=== PATIENT | female | born 1960 | race Caucasian/White ===

== ENCOUNTER 2021-08-13 06:44 | Day surgery (SDC) | payer MEDICARE, MEDICAID ==
[~2021-08-13] VITALS: Ht 162.6 cm; Wt 93.4 kg
[~2021-08-13 06:44] MED LIST: AMIT25TA12 PO; APIX5TAB PO; CYCL-839 PO; ERGO1CAP12 PO; GABA300C10 PO; HYDR200T36 PO; LISI20TA28 PO; MAGN400T40 PO; MECL25TA18 PO; METF-371 PO; METO25TA5 PO; PANT1INJ3 PO; ZOLP10TA6 PO
[2021-08-13] MEDS ORDERED: LIDOCAINE 2%HCL (LOCAL ANESTH.) INJ 20ML MDV ONE ×2 (08:20→09:22)
[2021-08-13] MEDS ORDERED: IODIXANOL 320MG/ML 100ML BTL IV ONE (09:22)
[2021-08-13] MEDS ORDERED: ANGIOMAX 250 MG VIAL IV ONE (09:23)
[2021-08-13] MEDS ORDERED: methylPREDNISolone SOD SUCC 125 MG/2 ML VL ONE (09:23)
[2021-08-13] MEDS ORDERED: diphenhdrAMINE HCL 50 MG/1 ML VL ONE (09:24)
[2021-08-13] MEDS ORDERED: SODIUM CHL 0.9% 0 ML ONE (09:24)
[2021-08-13] MEDS ORDERED: HEPARIN SODIUM (PORCINE) 5000 UNITS/ML 1ML VIAL ONE (09:24)
[2021-08-13] MEDS ORDERED: VERAPAMIL 2.5MG/ML INJ 2ML VIAL IV ONE (09:24)
[2021-08-13] MEDS ORDERED: fentaNYL CITRATE 100 MCG/2 ML VL ONE (09:24)
[2021-08-13] MEDS ORDERED: MIDAZOLAM HCL 2MG/2ML 2ml VIAL (1mg/ml) ONE (09:24)
[2021-08-13] MEDS ORDERED: FAMOTIDINE (10MG/ML) 2ML VL IV ONE (09:25)
[2021-08-13] MEDS ORDERED: ONDANSETRON HCL 4 MG/2 ML VIAL IV PRN (10:15)
[2021-08-13] MEDS ORDERED: ACETAMINOPHEN 500 MG TAB PO PRN (10:15)
[2021-08-13] MEDS ORDERED: HYDROcodone-ACET 5/325MG TAB PO PRN (10:15)
== END 2021-08-13 12:16 | disposition home or self-care (01) ==
LOC: CATH 06:44
PROVIDERS: ATTEND Internal Medicine Cardiovascular Disease
DX: I25.10 Atherosclerotic heart disease of native coronary artery without angina pectoris (principal); I10 Essential (primary) hypertension; E78.5 Hyperlipidemia, unspecified; J45.909 Unspecified asthma, uncomplicated; E11.9 Type 2 diabetes mellitus without complications; Z20.822 Contact with and (suspected) exposure to COVID-19; Z79.82 Long term (current) use of aspirin; Z79.899 Other long term (current) drug therapy; Z88.1 Allergy status to other antibiotic agents; Z91.041 Radiographic dye allergy status
CPT/HCPCS: 93458; C1887; C1894; J1200; J1644; J2250; J2930; J3010; J3490; Q9967; U0003; 99152

== ENCOUNTER 2025-09-12 06:17 | Inpatient (IN) | payer MEDICARE, MEDICAID ==
[2025-09-08 09:32] LABS: Hematocrit 36.7 % (36.0-46.0); Hemoglobin 12.2 g/dL (12.2-16.2); Mean Corpuscular Hemoglobin 29.8 pg (28.0-32.0); Mean Corpuscular Volume 89.4 fL (80.0-100.0); Nucleated Red Blood Cells % 0.1 %
[2025-09-08 09:39] LABS: INR 1.02 (0.9-1.15); Partial Thromboplastin Time 27.9 SEC (24.5-34.5); Prothrombin Time 10.8 sec (9.3-11.8)
[2025-09-08 10:03] LABS: Alanine Aminotransferase 16 U/L (7-40); Albumin 4.4 g/dL (3.2-4.8); Alkaline Phosphatase 99 U/L (46-116); Anion Gap 8 (5-15); BUN/Creatinine Ratio 6.7 (10.0-20.0); Bilirubin, Total 0.4 mg/dL (0.2-1.0); Blood Urea Nitrogen 6 mg/dL (9-23); Calcium 9.5 mg/dL (8.7-10.4); Carbon Dioxide 29 mmol/L (20-31); Chloride 107 mmol/L (98-107); Glucose 94 mg/dL (74-106); Potassium 3.9 mmol/L (3.5-5.1); Sodium 144 mmol/L (136-145); Total Protein 7.5 g/dL (5.7-8.2)
[2025-09-08 10:08] LABS: Urine Budding Yeast MODERATE /hpf (None Seen); Urine Protein, UAD Negative (Negative)
[2025-09-12] VITALS (8 sets, daily range): BP systolic 104–128; BP diastolic 62–76; PULSE 65–89; RESP 12–22; TEMP 97.4–98.1; O2SAT 94–98
[~2025-09-12] VITALS: Ht 162.6 cm; Wt 112.4 kg
[~2025-09-12 06:17] MED LIST changes: -AMIT25TA12 PO; +CETI10TA2 PO; -CYCL-839 PO; +CYCL0.05 EACHEYE; +DICL75TA3 PO; +DULO20CA PO; -ERGO1CAP12 PO; +FLUT250M2 INH; +GABA-1250 PO; -GABA300C10 PO; +HYDR-4798 PO; +HYDR50TA47 PO; +LIDO5DIS21 TOP; -LISI20TA28 PO; +LOSA-533 PO; -MAGN400T40 PO; -MECL25TA18 PO; +METF-370 PO; +QUET50TA PO; +SEMA4INJ SC; -ZOLP10TA6 PO
--- NOTE | 2025-09-12 07:27 | DVHHP2 ---
Admitting Diagnosis: lumbar spinal stenosis and spondylolisthesis History of Present Illness Home Meds Reported Medications Metformin Hydrochloride (Metformin Hcl) 500 Mg Tab, PO, TAB 09/08/25 Cyclosporine (Ophth) (Restasis) 0.05 % Emu, EACHEYE BID, #60 VIAL 3 Refills 09/08/25 Semaglutide (Ozempic) 4 Mg/3 Ml Inj, SC, INJ 09/08/25 Losartan Potassium (Losartan Potassium) 25 Mg Tab, PO, TAB 09/08/25 Hydrocodone-Acetaminophen (Hydrocodone Bitartrate/AC 10-325 mg) 1 Tab Tab, PO, TAB 09/08/25 Duloxetine Hcl (Cymbalta) 20 Mg Cap, PO, CAP 09/08/25 Fluticasone-Salmeterol (Advair Diskus 250/50) 1 Puff Ih, INH BID, #3 INHALER 3 Refills 09/08/25 Diclofenac Sodium (Diclofenac Sodium Dr) 75 Mg Tab, PO, TAB 09/08/25 Quetiapine Fumerate (Seroquel) 50 Mg Tab, PO, TAB 09/08/25 Lidocaine (LIDODERM 5% TOPICAL PATCH) 1 Patch Ph, TOP DAILY, #30 PATCH 1 Refill 09/08/25 Cetirizine Hcl (Kls Aller-Tana) 10 Mg Tab, PO, TAB 09/08/25 Hydralazine Hcl (Hydralazine Hcl) 50 Mg Tab, PO, TAB 09/08/25 Pantoprazole Sodium (PANTOPRAZOLE SODIUM) 40 Mg Inj, 40 MG PO BID for ACID REFLUX, INJ 08/12/21 Hydroxychloroquine Sulfate (Hydroxychloroquine Sulfat) 200 Mg Tab, 200 MG PO DAILY for SJOGREN SYNDROME, MG 08/12/21 Metoprolol Tartrate (Metoprolol Tartrate) 25 Mg Tab, 25 MG PO DAILY for BP, TAB 08/12/21 Gabapentin (Gabapentin) 300 Mg Cap, 300 MG PO TID for NEUROPATHY, MG 08/12/21 Metformin Hydrochloride (Metformin Hcl) 850 Mg Tab, 850 MG PO BID for DIABETES for 30 Days, MG 08/12/21 Apixaban Base (ELIQUIS) 5 Mg Tab, 5 MG PO BID for Blood Thinner, TAB 08/12/21 Timing/Duration of Back Pain: Getting worse Quality of Back Pain: Aching, Burning, Cramping Back Pain Location: Lumbar spine Back Pain Radiation: Buttocks, Thigh area, Feet Method of Injury/Prior Factors: Unknown Review of Systems Constitutional: No symptom reported Ears, Nose, & Throat: No symptom reported Eyes: No symptom reported Pulmonary/Respiratory: No symptom reported Cardiovascular: No symptom reported Gastrointestinal: No symptom reported Genitourinary: No symptom reported Musculoskeletal: Back pain, Muscle pain, Muscle stiffness Skin: No symptom reported Psychiatric: No symptom reported Endocrine: No symptom reported Hemotologic/Lymphatic: No symptom reported H&P Exam General Appeara: Well developed, Well nourished, Normal Appearance Head Exam: Normal inspection Neck Exam: Normal inspection, Non-tender, Normal alignment Eye Exam: bilateral eye Normal inspection, bilateral eye PERRL, bilateral eye EOMI Ear Exam: bilateral ear Auricle normal, bilateral ear Canal normal, bilateral ear TM normal Nasal Exam: Normal inspection Mouth: Normal Inspection Pulmonary/Respiratory: Normal inspection, Normal breath sounds, Chest non- tender, Lungs clear Cardiovascular/Chest: Normal inspection, Regular rate, Normal Rhythm Abdominal Exam: Normal bowel sounds, Soft, No tenderness, No hepatospenomegaly, No masses Rectal Exam: Deferred Back Exam: Decreased range of motion, Muscle spasm, Vertebral tenderness Pelvic Exam: Not done Male Genital Exam: Not done Shoulder Exam: Normal inspection, Non-tender, Normal ROM Elbow/Forearm Exam: Normal inspection, Non-tender, Normal ROM Wrist Exam: Normal inspection, Non-tender, Normal ROM Hand Exam: Normal inspection, Non-tender, Normal ROM Hip exam: Normal inspection, Non-tender, Normal range of motion Legs: bilateral leg non-tender, bilateral leg normal inspection, bilateral leg normal range of motion, bilateral leg no evidence of injury Knees: bilateral knee non-tender, bilateral knee normal inspection, bilateral knee normal range of motion, bilateral knee no evidence of injury Ankle Exam: bilateral ankle Normal inspection, bilateral ankle Non-tender, bilateral ankle Normal range of motion, bilateral ankle No evidence of injury Foot: bilateral foot non-tender, bilateral foot normal inspection, bilateral foot normal range of motion, bilateral foot no evidence of injury Tendon/ Neuro: Motor deficit, Sensory deficit CAMPAIGN ANALYST Exam: Normal hearing, Normal speech, PERRL Motor/Sensory: Weak motor strength LUE, Weak motor strength RLE, Weak motor strength LLE Deep Tendon Ref: All intact Neuro/Mental St: Alert, Oriented Appearance: Appropriate appearance Eye contact/ Speech: Cooperative, Good eye contact, Normal speech Coordination/Gait: Abnormal gait Skin Exam: Normal inspection, Normal color, Warm/dry Lymphatic: Normal inspection Labs/Xrays Labs Test 09/12/25 06:55 09/08/25 09:04 Range/Units POC Glucose 111 H 70-106 mg/dl White Blood Count 4.3 L 4.4-10.8 10^3/uL Red Blood Count 4.10 4.0-5.20 10^6/uL Hemoglobin 12.2 12.2-16.2 g/dL Hematocrit 36.7 36.0-46.0 % Mean Corpuscular Volume 89.4 80.0-100.0 fL Mean Corpuscular Hemoglobin 29.8 28.0-32.0 pg Mean Corpuscular Hemoglobin Concent 33.4 32.0-36.0 g/dL Red Cell Distribution Width 13.9 11.8-14.3 % Platelet Count 225 140-450 10^3/uL Mean Platelet Volume 8.4 6.9-10.8 fL Neutrophils (%) (Auto) 38.8 37.0-80.0 % Lymphocytes (%) (Auto) 46.1 10.0-50.0 % Monocytes (%) (Auto) 11.5 0.0-12.0 % Eosinophils (%) (Auto) 2.3 0.0-7.0 % Basophils (%) (Auto) 1.3 0.0-2.0 % Neutrophils # (Auto) 1.7 1.6-8.6 10 ^3/uL Lymphocytes # (Auto) 2.0 0.4-5.4 10 ^3/uL Monocytes # (Auto) 0.5 0-1.3 10 ^3/uL Eosinophils # (Auto) 0.1 0-0.8 10 ^3/uL Basophils # (Auto) 0.1 0-0.2 10 ^3/uL Nucleated Red Blood Cells 0.1 % Prothrombin Time 10.8 9.3-11.8 sec Prothrombin Time INR 1.02 0.9-1.15 Activated Partial Thromboplast Time 27.9 24.5-34.5 SEC Urine Color Light-yellow Yellow Urine Clarity Clear Clear Urine pH 5.0 5.0-9.0 Urine Specific [place] 1.031 1.001-1.035 Urine Protein Negative Negative Urine Ketones Negative Negative Urine Blood Negative Negative /uL Urine Nitrite Negative Negative Urine Bilirubin Negative Negative Urine Urobilinogen Normal Negative mg/dL Urine Leukocyte Esterase Negative Negative /uL Urine RBC 21 0 - 4 /hpf Urine Microscopic WBC 28 H 0-5 /HPF Urine Squamous Epithelial Cells Few <5 /hpf Urine Bacteria Few H None Seen /hpf Urine Mucus Few None Seen Urine Yeast (Budding) Moderate None Seen /hpf Urine Glucose 4+ H Normal mg/dL Sodium Level 144 136-145 mmol/L Potassium Level 3.9 3.5-5.1 mmol/L Chloride Level 107 98-107 mmol/L Carbon Dioxide Level 29 20-31 mmol/L Anion Gap 8 5-15 Blood Urea Nitrogen 6 L 9-23 mg/dL Creatinine 0.90 0.550-1.02 mg/dL Glomerular Filtration Rate Calc 72 >90 mL/min BUN/Creatinine Ratio 6.7 L 10.0-20.0 Serum Glucose 94 74-106 mg/dL Calcium Level 9.5 8.7-10.4 mg/dL Total Bilirubin 0.4 0.2-1.0 mg/dL Aspartate Amino Transferase (AST) 21 13-40 U/L Alanine Aminotransferase (ALT) 16 7-40 U/L Alkaline Phosphatase 99 46-116 U/L Total Protein 7.5 5.7-8.2 g/dL Albumin 4.4 3.2-4.8 g/dL Assessment/Plan Primary Diagnosis Lumbar spinal stenosis / spondylolisthesis with incpacitating neurogenic claudication Plan admit for elective lumbar spine surgery Plan discussed with: Patient REANNA VILLEGAS MD Sep 12, 2025 07:27
[2025-09-12] MEDS: ceFAZolin 2 GM/D5W50ml 50 ML IV ONE (07:35)
[2025-09-12] MEDS ORDERED: fentaNYL CITRATE 100 MCG/2 ML VL ONE (07:39)
[2025-09-12] MEDS ORDERED: MIDAZOLAM HCL 2MG/2ML 2ml VIAL (1mg/ml) ONE (07:39)
[2025-09-12] MEDS ORDERED: ONDANSETRON HCL 4 MG/2 ML VIAL ONE (07:40)
[2025-09-12] MEDS ORDERED: LIDOCAINE 1% INJ PF 5ML AMP ONE (07:40)
[2025-09-12] MEDS ORDERED: ROCURONIUM 10MG/ML 10ML VIAL IV ONE (07:40)
[2025-09-12] MEDS ORDERED: PROPOFOL 10 MG/ML 20 ML IV ONE ×3 (07:40→09:28)
[2025-09-12] MEDS ORDERED: METOCLOPRAMIDE HCL 5MG/ml INJ 2ml VIAL ONE (07:40)
[2025-09-12] MEDS ORDERED: fentaNYL CITRATE 5 ML ONE (07:56)
[2025-09-12] MEDS ORDERED: MORPHINE SULFATE INJ 2 MG/ml SYRG IV PRN ×2 (08:00)
[2025-09-12] MEDS ORDERED: ACETAMINOPHEN 325 MG TAB PO PRN (08:00)
[2025-09-12] MEDS ORDERED: D5W/SOD CHLO 0.9% 1,000 ML IV SCH (08:00)
[2025-09-12] MEDS ORDERED: NITROGLYCERIN 0.4 MG SL TAB SL PRN (08:00)
[2025-09-12] MEDS: MAGNESIUM SULFATE 1GM/100ML 200 ML IV ONE (08:11)
[2025-09-12] MEDS: LIDOCAINE 4MG/ML IV SOLN 500 ML IV ONE (08:11)
[2025-09-12] MEDS: TRANEXAMIC ACID 20 ML ONE (08:41)
[2025-09-12] MEDS ORDERED: SODIUM CHLORIDE LOCK 10 ML ONE (09:12)
[2025-09-12] MEDS ORDERED: SUGAMMADEX 200mg/2ml Vial (100MG/ML) IV ONE (09:19)
[2025-09-12] MEDS: DOCUSATE SOD 100 MG CAP PO SCH (10:00)
--- NOTE | 2025-09-12 10:11 | DVHOP2 ---
Operative Report - 2 Report Details Date: 09/12/25 Preop Diagnosis: lumbar degenerative disc disease and spinal stenosis causing incapacitating low back pain and neurogenic claudication Postop Diagnosis: same Surgeon: Vikas Villegas MD Biological Plant Operator: none Anesthesiologist: shamir Anesthesia: General Consent: The patient was informed of the risks and benefits of the procedure. These include but are not limited to complications of anesthesia, postoperative infection, incomplete relief of symptoms, recurrence of symptoms, damage to blood vessels, nerves and tendons, deep venous thrombosis, pulmonary embolism and possible need for repeat surgery in the future. Name of Procedure Performed see detailed note Procedure Details Procedure Details: Pre op diagnosis: lumbar degenerative disc disease and spinal stenosis causing incapacitating low back pain and neurogenic claudication Post-op Diagnosis: same Procedure: Lumbar 5 laminectomy with Lumbar 5 foraminotomies and facetectomies along with a L5/S1 discectomy to decompress central canal and Lumbar 5 nerve roots Bilateral Sacral 1 Laminotomies/Foraminotomies/Facetectomies to decompress the central canal and Bilateral Sacral 1 nerve Roots Lumbar 5 to sacral 1 posterior spinal intertransverse fusion with bone graft Lumbar 5 to sacral 1 posterior spinal instrumentation with Pedicle screws Local Bone Autograft For Fusion Allograft Bone to augment Fusion Use of Demineralized Bone Matrix to Augment Fusion Microscope For Microdissection Surgeon: Vikas Villegas MD Assist: none Anesthesia: General Fluids and EBL: See anesthesia note Patient was seen in the Pre Anesthesia Care Unit (PACU) and the operative site was initialed by me. All questions were answered to the patients satisfaction and chart reviewed. The patient was taken to the operative room where pre- operative antibiotics were given 30 minutes prior to incision. General anes thesia was induced and neuro-monitoring leads placed. Gracia catheter was placed. The patient was turned prone onto the [facility] spinal table. While positioning, I made sure that the belly was free to allow proper expansion of the lungs. The hips were extended and all bony prominences padded. The shoulders were abducted 80 degree and the elbows flexed 100 degrees with no ten masood on the brachial plexus. I check the foot arterial pulses and they were palpable. The patient was prepped and draped and time out was taken at this time per usual protocol. At this time, the C-arm fluoroscope was brought in and was used to jennifer the incision borders proximally and distally. Using a Number 10 Blade, an incision was made extending it proximally and distally per C arm jennifer from the posterior spinous process of lumbar 5 to sacral 1 , down to the lumbo- dorsal fascia. All bleeding was controlled with electrocautery. Self-retaining retractors were placed. Electrocautery was then used to take down the lumbo- dorsal fascia, to free the muscle off the bone bilaterally. A Sukhdeep retractor was placed over the posterior spinous process proximally and a lateral C-arm fluoroscope image was taken to insure we were at the correct level. Next, using bovie electro cautery, The deep fascia laterally to the facet joints was removed to expose the transverse processes of lumbar 5, sacral 1 while taking care to avoid injuring the facet capsule at the proximal end of the incision. Next, the microscope was bought in for visualization and using a Luxell rongeur, the posterior spinous process of lumbar 5 and sacral 1 were removed and the bone was saved for use as local autograft. I used alternating Kerison 2 mm and 3 mm rongeurs to perform central laminectomies of lumbar pained and bilateral laminotomies/foraminotomies/facetectomies of sacral 1 to decompress the central canal. Next using alternating Kerison 2mm and 3 mm rongeurs, the superior articular facets of lumbar 5 and sacral 1 were removed bilaterally to decompress the lateral recess (facetectomies) and then extended proximally to decompress the foramen bilaterally (foraminotomies). I used a ball tipped nerve probed to insure that the respective nerve roots were able to be mobilized 5mm in each direction were unimpeded in the lateral recess and foramen. Next I carefully inspected the dura to make sure no durotomy was visible and it was not. Next, I covered the exposed dura with gelfoam soaked in thrombin and the microscope was wheeled away from the operative filed. The C-arm fluoroscope was brought in and perfect AP views of the Lumbar 5 and sacral 1 pedicles were obtained. I placed bilateral pedicle screws at these levels by: using a Lenke awl to make a line pilot hole, then a ball tip robe to make sure there was no pedicle breach, then a tap to prepare the track and a 6 mm diameter and at lumbar 5 45mm and at sacral 1 35mmm length pedicle screw placed bilaterally. This step to place bilateral pedicle screws was repeated up to the lumbar 5/sacral one level. Next, the c-arm fluoroscope took an AP and lateral x-ray to ensure proper placement of the pedicle screws. Next, the neuro-stimulation probe was placed over the tip of each screw and each screw stimulated only after a current greater than 10 mA was delivered to the screw. Next , I took a Midas Nathanael Drill to decorticate the transverse process which were exposed and local bone graft, Bacterin allograft bone substitute and Demineralized bone matrix were placed along the inter transverse process intervals bilaterally (the fusion bed). Next a curved shoaib sized to fit the pedicle screw interval was placed and secured to each pedicle screw using set screws, The set screws were tightened using a torque screwdriver (set to 10 N*M torque) to secure the shoaib to the pedicle screws bilaterally. Final AP and lateral C arm fluoroscopic films were taken at this time. Next a 10 [place] diameter Hemovac drain was laced deep to the lumbo- dorsal fascia. The lumbo-dorsal fascia was closed with interrupted 0-Vicry sutures. The subcutaneous tissue was closed with interrupted 2-0 Vicryl sutures. 10 [place] Deep hemovac drain also placed in the subcutaneous tissue. The skin was closed with 2-0 nylon subcuticular suture. Sterile dressings were placed. The pt. was turned supine onto the stretcher, extubated and taken to the recovery room in stable condition. Condition Stable Disposition Still a Patient VIKAS VILLEGAS MD Sep 12, 2025 10:11
[2025-09-12] MEDS: MIDAZOLAM HCL 2MG/2ML 2ml VIAL (1mg/ml) IV PRN (10:25)
[2025-09-12] MEDS ORDERED: METOCLOPRAMIDE HCL 5MG/ml INJ 2ml VIAL IV PRN (10:30)
[2025-09-12] MEDS ORDERED: hydrALAZINE HCL 20 MG/ML VL IV PRN (10:30)
[2025-09-12] MEDS ORDERED: ONDANSETRON HCL 4 MG/2 ML VIAL IV PRN (10:30)
[2025-09-12] MEDS: ACETAMINOPHEN IV 100 ML IV ONE (10:49)
[2025-09-12] MEDS: ACETAMINOPHEN IV 1000 MG/100ML (10MG/ML) IV ONE (10:49)
[2025-09-12] MEDS: MIDAZOLAM HCL 5 MG/ML-1ML VIAL ONE (10:51)
[2025-09-12] MEDS: MIDAZOLAM HCL 5 MG/ML-1ML VIAL IM ONE (10:52)
[2025-09-12] MEDS: HYDROmorphone HCL 2 MG/ML VL/or syr IV PRN (10:55)
[2025-09-12] MEDS: LACTATED RINGER'S 1,000 ML IV SCH (12:25)
[2025-09-12] MEDS ORDERED: ceFAZolin 1GM/50ML 50 ML IV SCH (14:00)
[2025-09-12] MEDS: CYCLOBENZAPRINE HCL 10 MG TAB PO SCH (14:35)
[2025-09-12] MEDS: GABAPENTIN 300 MG CAP PO SCH (14:35)
[2025-09-12] MEDS: ceFAZolin 1GM/50ML 50 ML IV SCH (15:50)
[2025-09-12] MEDS: HYDROcodone-ACET 10/325MG TAB PO PRN (15:52)
--- NOTE | 2025-09-12 17:33 | DVH ---
C-ARM FLUOROSCOPY: PROCEDURE: L5-S1 decompression FLUOROSCOPY TIME: 60.4 seconds Cumulative dose: 43.55 mGy FINDINGS: Spot intraoperative C arm radiographs demonstrating only 1 image received in that is of the dose summary sheet.. IMPRESSION: 1. Please refer to surgical report for detailed findings.
--- NOTE | 2025-09-12 17:35 | DVH ---
CLINICAL INDICATION: L5- S1 DECOMPRESSION TECHNIQUE: 9 radiographic views of the 8 intraoperative images and 1 of the dose summary sheet were obtained. Comparison: None FINDINGS/IMPRESSION: Total fluoro time 60.4 seconds Cumulative dose: 43.55 mGy
[2025-09-12] MEDS: KETOROLAC TROMETH 30 MG/ML 1ML VIAL IV ONE (21:12)
[2025-09-13] VITALS (7 sets, daily range): BP systolic 112–147; BP diastolic 56–83; PULSE 79–97; RESP 17–20; TEMP 98–100.4; O2SAT 96–99
[2025-09-13] MEDS: MORPHINE SULFATE 4 MG/ML SYR/VIAL IV PRN (08:38)
[2025-09-13 10:13] LABS: Hepatitis B Surface Antigen Negative (Negative)
[2025-09-13 10:31] LABS: Hepatitis C Antibody Negative (Negative)
--- NOTE | 2025-09-13 10:56 | DVHINCON2 ---
Date Seen: Sep 13, [address] Dukes Family History: Diabetes mellitus G8 MOTHER FH: breast cancer G8 MOTHER FH: lung cancer G8 MOTHER G8 FATHER Hypertension G8 MOTHER Allergies: Coded Allergies: Sulfa Antibiotics (Verified Allergy, Unknown, 08/12/21) Breaks out. Fever and chills. Diphenhydramine (Unverified Adverse Reaction, Mild, makes itching worse, 09/08/25) per patient, makes itching worse Uncoded Allergies: Contrast dye (Allergy, Unknown, Breaks out, 08/12/21) Home Meds Reported Medications Metformin Hydrochloride (Metformin Hcl) 500 Mg Tab, PO, TAB 09/08/25 Cyclosporine (Ophth) (Restasis) 0.05 % Emu, EACHEYE BID, #60 VIAL 3 Refills 09/08/25 Semaglutide (Ozempic) 4 Mg/3 Ml Inj, SC, INJ 09/08/25 Losartan Potassium (Losartan Potassium) 25 Mg Tab, PO, TAB 09/08/25 Hydrocodone-Acetaminophen (Hydrocodone Bitartrate/AC 10-325 mg) 1 Tab Tab, PO, TAB 09/08/25 Duloxetine Hcl (Cymbalta) 20 Mg Cap, PO, CAP 09/08/25 Fluticasone-Salmeterol (Advair Diskus 250/50) 1 Puff Ih, INH BID, #3 INHALER 3 Refills 09/08/25 Diclofenac Sodium (Diclofenac Sodium Dr) 75 Mg Tab, PO, TAB 09/08/25 Quetiapine Fumerate (Seroquel) 50 Mg Tab, PO, TAB 09/08/25 Lidocaine (LIDODERM 5% TOPICAL PATCH) 1 Patch Ph, TOP DAILY, #30 PATCH 1 Refill 09/08/25 Cetirizine Hcl (Kls Aller-Tana) 10 Mg Tab, PO, TAB 09/08/25 Hydralazine Hcl (Hydralazine Hcl) 50 Mg Tab, PO, TAB 09/08/25 Pantoprazole Sodium (PANTOPRAZOLE SODIUM) 40 Mg Inj, 40 MG PO BID for ACID REFLUX, INJ 08/12/21 Hydroxychloroquine Sulfate (Hydroxychloroquine Sulfat) 200 Mg Tab, 200 MG PO DAILY for SJOGREN SYNDROME, MG 08/12/21 Metoprolol Tartrate (Metoprolol Tartrate) 25 Mg Tab, 25 MG PO DAILY for BP, TAB 08/12/21 Gabapentin (Gabapentin) 300 Mg Cap, 300 MG PO TID for NEUROPATHY, MG 08/12/21 Metformin Hydrochloride (Metformin Hcl) 850 Mg Tab, 850 MG PO BID for DIABETES for 30 Days, MG 08/12/21 Apixaban Base (ELIQUIS) 5 Mg Tab, 5 MG PO BID for Blood Thinner, TAB 08/12/21 Current Medications Current Medications Medications (Trade) Dose Ordered Sig/Estella Route PRN Reason Start Time Stop Time Status Last Admin Cyclobenzaprine HCl (Flexeril Tablet) 10 mg TID PO 09/12/25 14:00 09/13/25 05:14 Cefazolin Sodium 50 ml @ 100 mls/hr Q8HR IV 09/12/25 14:00 09/12/25 14:23 DC Gabapentin (Neurontin Capsule) 300 mg TID PO 09/12/25 14:00 09/13/25 05:14 Hydroxychloroquine Sulfate (Plaquenil Tablet) 200 mg DAILY PO 09/13/25 10:00 Losartan Potassium (Cozaar Tablet) 50 mg DAILY PO 09/13/25 10:00 Metformin HCl (Glucophage) 500 mg IBID PO 09/12/25 18:04 Metformin HCl (Glucophage) 850 mg BID PO 09/12/25 22:00 UNV Metoprolol Tartrate (Lopressor Tablet) 25 mg DAILY PO 09/13/25 10:00 Lactated Ringer's 1,000 ml @ 100 mls/hr Q10H IV 09/12/25 11:45 09/13/25 08:09 Cefazolin Sodium 50 ml @ 100 mls/hr Q8H IV 09/12/25 16:00 09/14/25 08:29 09/13/25 00:00 Morphine Sulfate 1 mg Q4HP PRN IV SEVERE PAIN (7-10 PAIN SCALE) 09/13/25 08:30 09/13/25 08:38 Vital Signs Vital Signs Date Time Temp Pulse Resp B/P (MAP) Pulse Ox O2 Delivery O2 Flow Rate FiO2 09/13/25 09:59 98.0 91 17 112/63 (79) 97 98.0 09/12/25 20:00 Nasal Cannula* 2 28 Labs/Diagnostic Data Labs Test 09/12/25 13:45 09/12/25 10:34 09/08/25 09:04 Range/Units Hepatitis B Surface Antigen Negative Negative Hepatitis B Core IgM Antibody Negative Negative Hepatitis C Antibody Negative Negative POC Glucose 214 H 70-106 mg/dl White Blood Count 4.3 L 4.4-10.8 10^3/uL Red Blood Count 4.10 4.0-5.20 10^6/uL Hemoglobin 12.2 12.2-16.2 g/dL Hematocrit 36.7 36.0-46.0 % Mean Corpuscular Volume 89.4 80.0-100.0 fL Mean Corpuscular Hemoglobin 29.8 28.0-32.0 pg Mean Corpuscular Hemoglobin Concent 33.4 32.0-36.0 g/dL Red Cell Distribution Width 13.9 11.8-14.3 % Platelet Count 225 140-450 10^3/uL Mean Platelet Volume 8.4 6.9-10.8 fL Neutrophils (%) (Auto) 38.8 37.0-80.0 % Lymphocytes (%) (Auto) 46.1 10.0-50.0 % Monocytes (%) (Auto) 11.5 0.0-12.0 % Eosinophils (%) (Auto) 2.3 0.0-7.0 % Basophils (%) (Auto) 1.3 0.0-2.0 % Neutrophils # (Auto) 1.7 1.6-8.6 10 ^3/uL Lymphocytes # (Auto) 2.0 0.4-5.4 10 ^3/uL Monocytes # (Auto) 0.5 0-1.3 10 ^3/uL Eosinophils # (Auto) 0.1 0-0.8 10 ^3/uL Basophils # (Auto) 0.1 0-0.2 10 ^3/uL Nucleated Red Blood Cells 0.1 % Prothrombin Time 10.8 9.3-11.8 sec Prothrombin Time INR 1.02 0.9-1.15 Activated Partial Thromboplast Time 27.9 24.5-34.5 SEC Urine Color Light-yellow Yellow Urine Clarity Clear Clear Urine pH 5.0 5.0-9.0 Urine Specific [place] 1.031 1.001-1.035 Urine Protein Negative Negative Urine Ketones Negative Negative Urine Blood Negative Negative /uL Urine Nitrite Negative Negative Urine Bilirubin Negative Negative Urine Urobilinogen Normal Negative mg/dL Urine Leukocyte Esterase Negative Negative /uL Urine RBC 21 0 - 4 /hpf Urine Microscopic WBC 28 H 0-5 /HPF Urine Squamous Epithelial Cells Few <5 /hpf Urine Bacteria Few H None Seen /hpf Urine Mucus Few None Seen Urine Yeast (Budding) Moderate None Seen /hpf Urine Glucose 4+ H Normal mg/dL Sodium Level 144 136-145 mmol/L Potassium Level 3.9 3.5-5.1 mmol/L Chloride Level 107 98-107 mmol/L Carbon Dioxide Level 29 20-31 mmol/L Anion Gap 8 5-15 Blood Urea Nitrogen 6 L 9-23 mg/dL Creatinine 0.90 0.550-1.02 mg/dL Glomerular Filtration Rate Calc 72 >90 mL/min BUN/Creatinine Ratio 6.7 L 10.0-20.0 Serum Glucose 94 74-106 mg/dL Calcium Level 9.5 8.7-10.4 mg/dL Total Bilirubin 0.4 0.2-1.0 mg/dL Aspartate Amino Transferase (AST) 21 13-40 U/L Alanine Aminotransferase (ALT) 16 7-40 U/L Alkaline Phosphatase 99 46-116 U/L Total Protein 7.5 5.7-8.2 g/dL Albumin 4.4 3.2-4.8 g/dL Assessment see dictated note Plan discussed with: Patient Date of Service: Sep 13, 2025 Billing Provider: PRABHU HARRIS MD Common Visit Codes: 62912-XHBDECU INP/OBS CARE (HIGH) Secondary Visit Codes: 63846-QASNZACF CARE PLAN 30 MINUTES PRABHU HARRIS MD Sep 13, 2025 10:56
[2025-09-13] MEDS ORDERED: DEXTROSE (50%) 50ML SYRG IV PRN (11:00)
[2025-09-13] MEDS: METOPROLOL TARTRATE 25 MG TAB PO SCH (11:08)
[2025-09-13] MEDS: LOSARTAN POTASSIUM 25 MG TAB PO SCH (11:09)
--- NOTE | 2025-09-13 11:12 | DVHINCON2 ---
INTERNAL MEDICINE CONSULT HISTORY OF PRESENT ILLNESS: The patient is a 65-year-old lady who was admitted after she underwent surgery on the lumbar spine for DJD of the spine and spondylolisthesis. The patient at this time complains of moderate pain. No chest pain. No shortness of breath. No nausea or vomiting. REVIEW OF SYSTEMS: Review of rest systems otherwise currently negative. PAST MEDICAL HISTORY: Significant for diabetes, hypertension, Sjogren's syndrome, and DVTs. MEDICATIONS: She takes metformin, Cymbalta, Seroquel, Protonix, Plaquenil, metoprolol, gabapentin, metformin, and Eliquis. ALLERGIES: CONTRAST, DIPHENHYDRAMINE, AND SULFA. SOCIAL HISTORY: No smoking or alcohol. Lives at home with her . FAMILY HISTORY: Negative. PHYSICAL EXAMINATION: GENERAL: The patient is awake and alert. VITAL SIGNS: Temperature of 98.9, pulse 79 per minute, blood pressure 131/73. SHEENT: Unremarkable. There is no JVD. No pedal edema. LUNGS: Equal bilaterally. No added sounds. CARDIOVASCULAR: S1, S2 is regular without murmurs. ABDOMEN: Soft. There is no organomegaly. NEUROLOGIC: Nonfocal. MUSCULOSKELETAL: There is a dressing at the site of lumbar spine surgery with drains in place. ASSESSMENT AND PLAN: * Diabetes mellitus for which she will be placed on sliding-scale insulin and a hemoglobin A1c will be checked. * Hypertension. * Sjogren's syndrome for which she will continue on Plaquenil. * Morbid obesity. * History of DVTs. * Status post lumbar spine surgery for spondylolisthesis. The patient will be placed on pain medication and receive physical therapy. * Advance care planning: The patient is a full code-Time spent was 18 minutes. MD RADHA Ariza/JAMES TID: [id number] RECEIPT: [id number] [facility]
[2025-09-13] MEDS: InsuLIN REG 1unit/0.01ml Soln (100units/ml) SC SCH (11:30)
[2025-09-13] MEDS: PANTOPRAZOLE 40 MG TAB PO ONE (11:55)
[2025-09-13] MEDS: ACCU-CHEK COMFORT CURVE STRIP VI SCH (11:55)
[2025-09-13] MEDS: KETOROLAC TROMETH 30 MG/ML 1ML VIAL IV PRN (12:06)
[2025-09-13] MEDS: ONDANSETRON HCL 4 MG/2 ML VIAL IV PRN (23:29)
[2025-09-14] VITALS (8 sets, daily range): BP systolic 121–141; BP diastolic 75–80; PULSE 79–93; RESP 18–20; TEMP 97–99; O2SAT 95–99
[2025-09-14] MEDS: PANTOPRAZOLE 40 MG TAB PO SCH (05:50)
[2025-09-14 06:28] LABS: Hematocrit 29.9 % (36.0-46.0); Hemoglobin 10.0 g/dL (12.2-16.2); Mean Corpuscular Hemoglobin 30.0 pg (28.0-32.0); Mean Corpuscular Volume 89.6 fL (80.0-100.0); Nucleated Red Blood Cells % 0.0 %
[2025-09-14 06:50] LABS: Alanine Aminotransferase 30 U/L (7-40); Albumin 3.7 g/dL (3.2-4.8); Alkaline Phosphatase 76 U/L (46-116); Anion Gap 8 (5-15); BUN/Creatinine Ratio 8.0 (10.0-20.0); Bilirubin, Total 0.6 mg/dL (0.2-1.0); Calcium 8.8 mg/dL (8.7-10.4); Carbon Dioxide 28 mmol/L (20-31); Chloride 106 mmol/L (98-107); Potassium 3.6 mmol/L (3.5-5.1); Sodium 142 mmol/L (136-145); Total Protein 6.3 g/dL (5.7-8.2)
[2025-09-14 06:57] LABS: Blood Urea Nitrogen 6 mg/dL (9-23); Glucose 122 mg/dL (74-106)
--- NOTE | 2025-09-14 12:58 | DVHPN2 ---
Progress Note Date Seen: Sep 14, 2025 Medical Necessity Reason Pt with a Central, PICC or Fol: No Subjective Patient reports: No new complaints Review of Systems: HEENT:Normal, CVS:Normal, RESPIRATORY:Normal, GI:Normal, :Normal, MSK:Normal, NEURO:Normal Objective vital signs Vital Sign Date Time Temp Pulse Resp B/P (MAP) Pulse Ox O2 Delivery O2 Flow Rate FiO2 09/14/25 09:33 89 141/75 09/14/25 09:30 98.9 20 97 98.9 09/14/25 08:00 Nasal Cannula* 2 28 Total Intake and Output 09/13/25 09/13/25 09/14/25 14:59 22:59 06:59 Intake Total 640 ml 1000 ml Output Total 500 ml 800 ml Balance 140 ml 200 ml medications Current Medications Medications Dose Ordered Sig/Estella Route Start Time Stop Time Status Last Admin Dose Admin Ondansetron HCl 4 mg Q4HP PRN IV 09/12/25 08:00 09/13/25 23:29 4 MG Acetaminophen 650 mg Q6HP PRN PO 09/12/25 08:00 Cyclobenzaprine HCl 10 mg TID PO 09/12/25 14:00 09/14/25 05:50 10 MG Docusate Sodium 100 mg BID PO 09/12/25 10:00 09/14/25 09:32 100 MG Nitroglycerin 0.4 mg Q5MINP PRN SL 09/12/25 08:00 Morphine Sulfate 2 mg Q30M PRN IV 09/12/25 08:00 Gabapentin 300 mg TID PO 09/12/25 14:00 09/14/25 05:49 300 MG Hydroxychloroquine Sulfate 200 mg DAILY PO 09/13/25 10:00 09/14/25 09:33 200 MG Losartan Potassium 50 mg DAILY PO 09/13/25 10:00 09/14/25 09:32 50 MG Metformin HCl 850 mg BID PO 09/12/25 22:00 UNV Metoprolol Tartrate 25 mg DAILY PO 09/13/25 10:00 09/14/25 09:33 25 MG Lactated Ringer's 1,000 ml @ 100 mls/hr Q10H IV 09/12/25 11:45 09/14/25 05:51 100 MLS/HR Morphine Sulfate 1 mg Q4HP PRN IV 09/13/25 08:30 09/13/25 08:38 1 MG Diagnostic Test (Pha) 1 strip ACHS 09/13/25 11:30 09/14/25 11:18 1 STRIP Insulin Human Regular ACHS SC 09/13/25 11:30 09/13/25 23:37 3 UNITS Dextrose 50 ml UD PRN IV 09/13/25 11:00 Ketorolac Tromethamine 15 mg Q6HPRN PRN IV 09/13/25 11:00 09/18/25 10:59 09/14/25 10:17 15 MG Duloxetine HCl 30 mg DAILY PO 09/14/25 10:00 09/14/25 09:33 30 MG Pantoprazole Sodium 40 mg DAILY@0600 PO 09/14/25 06:00 09/14/25 05:50 40 MG Examination: GENERAL:Normal, HEENT:Normal, NECK:Normal, LUNGS:Normal, CVS:Normal, ABDOMEN:Normal, MSK:Normal, MSK:Abnormal (dressing, drains), SKIN:Normal, NEURO:Normal, :Normal laboratory and microbiology Laboratory Tests 09/14/25 05:38 Test 09/14/25 05:38 Range/Units Serum Glucose 122 H 74-106 mg/dL Microbiology Date/Time Source Procedure Growth Status 09/12/25 20:00 Nose MRSA Screen - Final Complete Problem List/Assessment/Plan Problem List/Assessment/Plan * Diabetes mellitus for which she will be placed on sliding-scale insulin and a hemoglobin A1c will be checked. * Hypertension. * Sjogren's syndrome for which she will continue on Plaquenil. * Morbid obesity. * History of DVTs. * left leg numbness: notify dr Dukes * Status post lumbar spine surgery for spondylolisthesis. The patient will be placed on pain medication and receive physical therapy. * Advance care planning: The patient is a full code- Time spent was 18 minutes. Plan discussed with: Patient My Orders My Orders Orders - PRABHU HARRIS MD Procedure Category Date Status Time Lactated Ringers Lr PHA 09/14/25 Transmitted 13:00 Date of Service: Sep 14, 2025 Billing Provider: PRABHU HARRIS MD Common Visit Codes: [id number] INP/OBS CARE(HIGH) Secondary Visit Codes: [id number] CARE PLAN 30 MINUTES PRABHU HARRIS MD Sep 14, 2025 12:58
[2025-09-14] MEDS: LACTATED RINGER'S 1,000 ML IV SCH (15:40)
--- NOTE | 2025-09-14 23:34 | DVHPN2 ---
Progress Note - Spine Surgery Date Seen: Sep 14, 2025 Procedure Name lumbar decompression and fusion Implant used pedicle screws Post op day Post op day: 2 Subjective Review of Systems: HEENT:Normal, CVS:Normal, RESPIRATORY:Normal, GI:Abnormal, MSK:Normal, NEURO:Normal Objective Vital signs Vital Sign Date Time Temp Pulse Resp B/P (MAP) Pulse Ox O2 Delivery O2 Flow Rate FiO2 09/14/25 21:00 97.0 83 18 136/76 (96) 99 97.0 09/14/25 08:00 Nasal Cannula* 2 28 Total Intake and Output 09/13/25 09/13/25 09/14/25 14:59 22:59 06:59 Intake Total 640 ml 1000 ml Output Total 500 ml 800 ml Balance 140 ml 200 ml Medications Current Medications Medications Dose Ordered Sig/Estella Route Start Time Stop Time Status Last Admin Dose Admin Ondansetron HCl 4 mg Q4HP PRN IV 09/12/25 08:00 09/13/25 23:29 4 MG Acetaminophen 650 mg Q6HP PRN PO 09/12/25 08:00 Cyclobenzaprine HCl 10 mg TID PO 09/12/25 14:00 09/14/25 21:20 10 MG Docusate Sodium 100 mg BID PO 09/12/25 10:00 09/14/25 21:20 100 MG Nitroglycerin 0.4 mg Q5MINP PRN SL 09/12/25 08:00 Morphine Sulfate 2 mg Q30M PRN IV 09/12/25 08:00 Gabapentin 300 mg TID PO 09/12/25 14:00 09/14/25 21:20 300 MG Hydroxychloroquine Sulfate 200 mg DAILY PO 09/13/25 10:00 09/14/25 09:33 200 MG Losartan Potassium 50 mg DAILY PO 09/13/25 10:00 09/14/25 09:32 50 MG Metformin HCl 850 mg BID PO 09/12/25 22:00 UNV Metoprolol Tartrate 25 mg DAILY PO 09/13/25 10:00 09/14/25 09:33 25 MG Morphine Sulfate 1 mg Q4HP PRN IV 09/13/25 08:30 09/13/25 08:38 1 MG Diagnostic Test (Pha) 1 strip ACHS 09/13/25 11:30 09/14/25 21:21 1 STRIP Insulin Human Regular ACHS SC 09/13/25 11:30 09/14/25 21:22 2 UNITS Dextrose 50 ml UD PRN IV 09/13/25 11:00 Ketorolac Tromethamine 15 mg Q6HPRN PRN IV 09/13/25 11:00 09/18/25 10:59 09/14/25 23:11 15 MG Duloxetine HCl 30 mg DAILY PO 09/14/25 10:00 09/14/25 09:33 30 MG Pantoprazole Sodium 40 mg DAILY@0600 PO 09/14/25 06:00 09/14/25 05:50 40 MG Lactated Ringer's 1,000 ml @ 75 mls/hr [id number] IV 09/14/25 13:00 09/14/25 15:40 75 MLS/HR Laboratory Laboratory Tests 09/14/25 05:38 Test 09/14/25 05:38 Range/Units Serum Glucose 122 H 74-106 mg/dL Microbiology Date/Time Source Procedure Growth Status 09/12/25 20:00 Nose MRSA Screen - Final Complete Examination: GENERAL:Normal, HEENT:Normal, NECK:Normal, LUNGS:Normal, CVS:Normal, ABDOMEN:Abnormal, MSK:Normal, SKIN:Normal, NEURO:Normal Problem List/Assessment/Plan Assessment and Plan lumbar spinal stenosis Post op Plan -Discharge RX: -To be determined during postoperative hospital stay depending on the effectiveness of the current pain medication. - Preferred pharmacy, [ ] -Follow up appointment: With Dr Villegas on [ ] [id number] [facility] [address] [place] [id number] -Pain: - IV pain meds post op day 1, with PO supplementation, goal is to progress weaning off IV medications and control pain with PO only. Currently has morphine 1mg for pain 7-10 - P.O. analgesics: Schofield 10/325 mg for pain 4-6, Tylenol 650mg for pain 1-3 - Muscle relaxers scheduled administration. This is a beneficial medications for the incisional pain as it is mostly related to muscle spasms. Currently has Flexeril 10mg TID -Antibiotics Operative recommendations: -Post operative antibiotics completed on POD #1 -Activity: -Pending PT evaluation and patients progression -Sit at side of bed for meals -Goal: Ambulate independently and safely (may use assistive devices if needed) -Brace: - No brace needed -Medical Therapy goals: -Afebrile- Patient may develop a expected post operative fever by day 2-3, this may not be accompanied with a elevation in WBC. if fever develops: Acetaminophen for fever. Albuterol nebulizer Tx every 12 hours for 24 hours to facilitate adequate lung expansion and prevent development of atelectasis. -Euglycemic: bloods sugars under 130mmol/L for optimal healing -Normotensive: Avoid events of hypertension. This helps to keep post operative healing intact and avoids destabilization of beneficial hemostatic coagulation. -Drains: Current output drain #1= 0.5 mL, drain #2= 0 mL: drain #3= 80 mL. these will remain in place today possible discontinuation tomorrow -Hemovac drains: These will be to full compression unless otherwise ordered. please record and document output AND characteristic of fluid present independently at least once a shift, more often as needed. If output is greater than 100 ml in one hour of lilia blood call provider. These drains will be removed once the drainage is at a acceptable level (generally less than 100ml in 24 hours) -Kar dressing: This will stay in place and will be removed at the patients follow up visit. Nursing is to assess the seal and power source. The seal should be intact and the power source should have a green flashing light indicating it is functioning well. Batteries can last up to 14 days. If a leak develops the dressing edges can be reinforced with a Tegaderm dressing to reestablish intact seal. The kar dressing is NOT a wound vac. This does not get changed, it does not need home health management. -Gracia: -Removed in the PACU. -Dressings -Dressing to Hemovac drains may be changed once the drains have been removed by the provider. Take care not to disrupt the KAR dressing seal. If there is a break in the seal it can be trouble shot with a Tegaderm dressing. -Bowel management: -Ambulation when able -Coffee if allowed by dietary restrictions, if any. -Currently on Colace 100mg BID -Diet: -Clear liquid diet and advance as patient tolerates within dietary limitations ( diabetic, Cardiac) -DVT PPX: -Hold all chemical DVT/ blood thinners for 14 days postoperatively -use mechanical DVT PPX such as SCD's, ambulation -Incentive Spirometer: -10 x hour while awake, RN please educate and observe repeat demonstration, have IS at bedside POD #1 -X-rays: - none indicated at this time -Consults: -Physical Therapy evaluation, treatment recommendations, and discharge recommendations Call with questions Linn Reid ACNP- Orthopaedic Spine Surgery nurse practitioner For Dr Katiuska Villegas [phone]- for staff use only Patient was examined, chart reviewed, labs evaluated, and diagnostic studies and findings analyzed. Case was discussed with Dr. Vikas Villegas who formulated the plan of care. This medical document was created using an electronic medical record system with [employer] dictation system. Although this document has been carefully reviewed, there might still be some phonetic and typographical errors. These areas are purely typographical due to imperfections of the software programs, and do not reflect any compromise in the patient's medical care. Plan discussed with Plan discussed with: Patient VIKAS VILLEGAS MD Sep 14, 2025 23:34
[2025-09-15] VITALS (7 sets, daily range): BP systolic 113–143; BP diastolic 79–84; PULSE 76–85; RESP 16–20; TEMP 97.9–99.6; O2SAT 93–98
[2025-09-15] MEDS: MORPHINE SULFATE INJ 2 MG/ml SYRG IV PRN (15:04)
[2025-09-15] MEDS ORDERED: HYDROcodone-ACET 10/325MG TAB PO PRN (21:45)
[2025-09-16] MEDS: MORPHINE SULFATE INJ 2 MG/ml SYRG IV PRN (00:21)
[2025-09-16 00:40] VITALS: BP 140/83; PULSE 78; RESP 20; TEMP 98.2; O2SAT 91
[2025-09-16 05:25] VITALS: BP 122/78; PULSE 71; RESP 19; TEMP 98.8; O2SAT 98
[2025-09-16] MEDS: HYDROcodone-ACET 10/325MG TAB PO PRN (06:22)
[2025-09-16 08:59] VITALS: BP 136/76; PULSE 70; RESP 16; TEMP 96.6; O2SAT 98
[2025-09-16 13:00] VITALS: BP 135/79; PULSE 69; RESP 17; TEMP 97.2; O2SAT 93
[2025-09-16 17:00] VITALS: BP 129/84; PULSE 71; RESP 16; TEMP 98.6; O2SAT 97
[2025-09-16] MEDS: TAMSULOSIN HYDROCHLORIDE 0.4 MG CAP PO SCH (17:44)
[2025-09-16 21:00] VITALS: BP 148/81; PULSE 76; RESP 19; TEMP 97.7; O2SAT 99
[2025-09-17] VITALS (7 sets, daily range): BP systolic 125–157; BP diastolic 71–93; PULSE 64–75; RESP 14–19; TEMP 97.6–98.4; O2SAT 97–100
[2025-09-18] VITALS (8 sets, daily range): BP systolic 127–159; BP diastolic 57–90; PULSE 64–79; RESP 17–19; TEMP 97.6–98.3; O2SAT 94–100
[2025-09-18] MEDS: hydrALAZINE HCL 20 MG/ML VL IV PRN (02:23)
[2025-09-19] VITALS (7 sets, daily range): BP systolic 138–161; BP diastolic 71–92; PULSE 68–73; RESP 17–18; TEMP 97.6–98.3; O2SAT 91–99
--- NOTE | 2025-09-19 08:14 | PRN ---
Misceleneous Note Note Note Spine surgery postop note Patient currently awake, alert no apparent distress noted Patient is handling secretions, respirations are equal and unlabored, voice is strong Skin is pink warm and dry No complaints of abdominal pain no distention noted Patient passing gas Patient tolerating meal Iain dressing is functioning and seal is intact, power source is operational Drain sites are clear, order placed for new dressing to be applied Patient requesting to go home Informed by surgeon that medications have been sent to patient's preferred pharmacy at her preoperative visit before surgery Patient should keep her postop appointment as scheduled Call for a appointment, or to change or confirm your appoinment [id number] [place] [address], [address], [place] [address] Continue supportive care, postoperative treatment, pain management and wound dressing Patient may be discharged from a spine surgical perspective Patient will be discharged with iain dressing in place, this will be removed at postop follow-up appointment which should be scheduled by postoperative day 10 Your iain dressing may be carried in your pocket or belt clip what ever is most comfortable for you. Your iain pump contains a small magnet be sure to keep it at least 4 inches or 10 cm away from any other medical devices at all times. As with all electrical medical equipment, failure to maintain appropriate distance may disrupt the operation of nearby medical devices. Sleeping, be sure your iain drain is placed somewhere safe and cannot be pulled off of the table or a cabinet onto the floor during sleeping. Washing and showering, do not soak the dressing or allow the pump to get wet. You may shower with your iain dressing. However do not allow the water to saturate the dressing. The power source must be placed in a Ziploc bag and the opening taped closed to prevent the power source from getting wet No bending lifting or twisting until cleared by your surgeon. Call with questions Linn Reid [facility] Orthopaedic Spine Surgery nurse practitioner For Dr Katiuska Dukes Office Patient was examined, chart reviewed, labs evaluated, and diagnostic studies and findings analyzed. Case was discussed with Dr. Vikas Dukes who formulated the plan of care. This medical document was created using an electronic medical record system with [employer] dictation system. Although this document has been carefully reviewed, there might still be some phonetic and typographical errors. These areas are purely typographical due to imperfections of the software programs, and do not reflect any compromise in the patient's medical care. HEATH REID NP Sep 19, 2025 08:14
--- NOTE | 2025-09-19 08:19 | DVHDS2 ---
ASSESSMENT ASSESSMENT Hospital Course The patient arrived for a elective spine surgery with Dr. DUKES. Surgery went as planned with no complications. After a short stay in the PACU patient was admitted to the hospital for postoperative care and pain management over the course of several postoperative days the patient was able to tolerate a diet, ambulate independently, the pain has been managed with oral analgesics. The surgical site is well-approximated with sutures, some residual drainage continues from drain insertion sites after removal, however it is manageable with daily wound care and dressing changes. Some improvement to preoperative symptoms of extremities, strength and motion. There is new post operative pain that is localized to the surgical site. The patient will follow-up with Dr. Dukes for wound check and suture check or staple removal. Assessment Acute postoperative pain Muscle spasms lumbar spine Status post lumbar spine surgery Problems: (1) Acute post-operative pain Assessments: Patient has picked up medication prior to surgery (2) Muscle spasm of back Assessments: Patient has picked up medication prior to surgery HEATH TOSCANO NP Sep 19, 2025 08:19
[2025-09-19] MEDS ORDERED: LACT10SO3 PO (08:25)
[2025-09-19] MEDS: LACTULOSE 20Gm/30ML SOLN PO SCH (09:40)
[2025-09-19] MEDS: MILK OF MAGNESIA 30ML SUSP PO ONE (11:54)
--- NOTE | 2025-09-19 15:48 | DVHDS2 ---
Discharge Summary Date of Admission Sep 12, 2025 at 07:56 Date of Discharge: Sep 19, 2025 Labs/Diagnostic Data: Laboratory Results Test 09/19/25 11:46 09/14/25 05:38 09/12/25 13:45 09/08/25 09:04 POC Glucose 109 mg/dl (70-106) White Blood Count 9.9 10^3/uL (4.4-10.8) Red Blood Count 3.34 10^6/uL (4.0-5.20) Hemoglobin 10.0 g/dL (12.2-16.2) Hematocrit 29.9 % (36.0-46.0) Mean Corpuscular Volume 89.6 fL (80.0-100.0) Mean Corpuscular Hemoglobin 30.0 pg (28.0-32.0) Mean Corpuscular Hemoglobin Concent 33.4 g/dL (32.0-36.0) Red Cell Distribution Width 13.8 % (11.8-14.3) Platelet Count 143 10^3/uL (140-450) Mean Platelet Volume 8.7 fL (6.9-10.8) Neutrophils (%) (Auto) 75.8 % (37.0-80.0) Lymphocytes (%) (Auto) 12.6 % (10.0-50.0) Monocytes (%) (Auto) 11.0 % (0.0-12.0) Eosinophils (%) (Auto) 0.3 % (0.0-7.0) Basophils (%) (Auto) 0.3 % (0.0-2.0) Neutrophils # (Auto) 7.5 10 ^3/uL (1.6-8.6) Lymphocytes # (Auto) 1.2 10 ^3/uL (0.4-5.4) Monocytes # (Auto) 1.1 10 ^3/uL (0-1.3) Eosinophils # (Auto) 0 10 ^3/uL (0-0.8) Basophils # (Auto) 0 10 ^3/uL (0-0.2) Nucleated Red Blood Cells 0.0 % Sodium Level 142 mmol/L (136-145) Potassium Level 3.6 mmol/L (3.5-5.1) Chloride Level 106 mmol/L (98-107) Carbon Dioxide Level 28 mmol/L (20-31) Anion Gap 8 (5-15) Blood Urea Nitrogen 6 mg/dL (9-23) Creatinine 0.75 mg/dL (0.550-1.02) Glomerular Filtration Rate Calc 89 mL/min (>90) BUN/Creatinine Ratio 8.0 (10.0-20.0) Serum Glucose 122 mg/dL (74-106) Hemoglobin A1c 6.2 % A1C (<5.7) Calcium Level 8.8 mg/dL (8.7-10.4) Total Bilirubin 0.6 mg/dL (0.2-1.0) Aspartate Amino Transferase (AST) 74 U/L (13-40) Alanine Aminotransferase (ALT) 30 U/L (7-40) Alkaline Phosphatase 76 U/L (46-116) Total Protein 6.3 g/dL (5.7-8.2) Albumin 3.7 g/dL (3.2-4.8) Hepatitis B Surface Antigen Negative (Negative) Hepatitis B Core IgM Antibody Negative (Negative) Hepatitis C Antibody Negative (Negative) Prothrombin Time 10.8 sec (9.3-11.8) Prothrombin Time INR 1.02 (0.9-1.15) Activated Partial Thromboplast Time 27.9 SEC (24.5-34.5) Urine Color Light-yellow (Yellow) Urine Clarity Clear (Clear) Urine pH 5.0 (5.0-9.0) Urine Specific Britt 1.031 (1.001-1.035) Urine Protein Negative (Negative) Urine Ketones Negative (Negative) Urine Blood Negative /uL (Negative) Urine Nitrite Negative (Negative) Urine Bilirubin Negative (Negative) Urine Urobilinogen Normal mg/dL (Negative) Urine Leukocyte Esterase Negative /uL (Negative) Urine RBC 21 /hpf (0 - 4) Urine Microscopic WBC 28 /HPF (0-5) Urine Squamous Epithelial Cells Few /hpf (<5) Urine Bacteria Few /hpf (None Seen) Urine Mucus Few (None Seen) Urine Yeast (Budding) Moderate /hpf (None Seen) Urine Glucose 4+ mg/dL (Normal) Other Laboratory Tests 09/14/25 05:38 Brief Hx & Hospital Course: * Diabetes mellitus for which she will be placed on sliding-scale insulin and a hemoglobin A1c will be checked. * Hypertension. * Sjogren's syndrome for which she will continue on Plaquenil. * Morbid obesity. * History of DVTs. * left leg numbness: * Status post lumbar spine surgery for spondylolisthesis. The patient will be placed on pain medication and receive physical therapy. * Advance care planning: The patient is a full code- Time spent was 18 minutes. Condition at Discharge: Stable Final Diagnosis/Problems List Patient has picked up medication prior to surgery Discharge Disposition: Home Discharge Instruct/Medications Diet: See Comment Diet comment: Avoid excessive sugars and processed foods Activity: Light activity Activity comment: Activity as tolerated, limit your bending and twisting, no lifting any objects over 2-1/2 lb You may front shower only do not let the water run over your iain dressing, covered the power source in a Ziploc bag and tape the opening close to prevent it from getting wet Follow Up/Referral: Your follow up appointment with Dr. Jay Medications: Medications have been picked up after her preoperative visit prior to surgery Scheduled Apixaban Base (Eliquis), 5 MG PO BID, (Reported) Cyclosporine (Ophth) (Restasis), Unknown Dose EACHEYE BID, (Reported) Fluticasone-Salmeterol (Advair Diskus 250/50), Unknown Dose INH BID, (Reported) Gabapentin (Gabapentin), 300 MG PO TID, (Reported) Hydroxychloroquine Sulfate (Hydroxychloroquine Sulfat), 200 MG PO DAILY, (Reported) Lactulose (Lactulose), 30 ML PO BID Lidocaine (Lidoderm 5% Topical Patch), Unknown Dose TOP DAILY, (Reported) Metformin Hydrochloride (Metformin Hcl), 850 MG PO BID, (Reported) Metoprolol Tartrate (Metoprolol Tartrate), 25 MG PO DAILY, (Reported) Pantoprazole Sodium (Pantoprazole Sodium), 40 MG PO BID, (Reported) Miscellaneous Medications Cetirizine Hcl (Kls Aller-Tana), Unknown Dose PO, (Reported) Diclofenac Sodium (Diclofenac Sodium Dr), Unknown Dose PO, (Reported) Duloxetine Hcl (Cymbalta), Unknown Dose PO, (Reported) Hydralazine Hcl (Hydralazine Hcl), Unknown Dose PO, (Reported) Hydrocodone-Acetaminophen (Hydrocodone Bitartrate/AC 10-325 mg), Unknown Dose PO, (Reported) Losartan Potassium (Losartan Potassium), Unknown Dose PO, (Reported) Metformin Hydrochloride (Metformin Hcl), Unknown Dose PO, (Reported) Quetiapine Fumerate (Seroquel), Unknown Dose PO, (Reported) Semaglutide (Ozempic), Unknown Dose SC, (Reported) Discharge Statement: "Patient was advised to return to the ER or call 911 if any headaches, dizziness, shortness of breath, chest pain, abdominal pain, bleeding, fevers, or worsening of medical condition. Patient was counseled about treatment plan, medications, possible side effects, patientverbalized understanding. All questions were answered to the best of my ability. This discharge took greater then 30 minutes in planning, reviewing documentation, counseling the patient, and discussing with other team members." ASSESSMENT ASSESSMENT Assessment Patient has picked up medication prior to surgery Date of Service: Sep 19, 2025 Billing Provider: NATALIA DURHAM DO Common Visit Codes: [id number] DISCH DAY >30min NATALIA DURHAM DO Sep 19, 2025 15:48
--- NOTE | 2025-09-20 08:10 | DVHPN2 ---
Reviewed: Care Plan, H&P Changes from previous H/P or p: No Changes General: Per HPI Objective Vitals Vital Signs Date Time Temp Pulse Resp B/P (MAP) Pulse Ox O2 Delivery O2 Flow Rate FiO2 09/19/25 17:08 98.3 73 17 92 09/19/25 17:00 143/82 (102) 09/19/25 08:00 Room Air* 0 21 Intake/Output Intake and Output 09/20/25 07:00 Intake Total 500 ml Balance 500 ml Intake Oral 500 ml # Voids 3 Medications Current Medications Medications Dose Ordered Sig/Estella Route Start Time Stop Time Status Last Admin Dose Admin Metformin HCl 850 mg BID PO 09/12/25 22:00 UNV Laboratory Results Laboratory Tests 09/14/25 05:38 Urinalysis Test 09/08/25 09:04 Urine Color Light-yellow (Yellow) Urine Clarity Clear (Clear) Urine pH 5.0 (5.0-9.0) Urine Specific Nora 1.031 (1.001-1.035) Urine Protein Negative (Negative) Urine Ketones Negative (Negative) Urine Blood Negative /uL (Negative) Urine Nitrite Negative (Negative) Urine Bilirubin Negative (Negative) Urine Urobilinogen Normal mg/dL (Negative) Urine Leukocyte Esterase Negative /uL (Negative) Urine RBC 21 /hpf (0 - 4) Urine Microscopic WBC 28 /HPF (0-5) H Urine Squamous Epithelial Cells Few /hpf (<5) Urine Bacteria Few /hpf (None Seen) H Urine Mucus Few (None Seen) Urine Yeast (Budding) Moderate /hpf (None Seen) Urine Glucose 4+ mg/dL (Normal) H Microbiology Microbiology Date/Time Source Procedure Growth Status 09/12/25 20:00 Nose MRSA Screen - Final Complete Labs and/or images reviewed: Labs reviewed by me, Image(s) reviewed by me Assessment/Plan Assessment/Plan * Diabetes mellitus for which she will be placed on sliding-scale insulin and a hemoglobin A1c will be checked. * Hypertension. * Sjogren's syndrome for which she will continue on Plaquenil. * Morbid obesity. * History of DVTs. * left leg numbness: notify dr Dukes * Status post lumbar spine surgery for spondylolisthesis. The patient will be placed on pain medication and receive physical therapy. * Advance care planning: The patient is a full code- Time spent was 18 minutes. Plan discussed with: Patient Date of Service: Sep 15, 2025 Billing Provider: NATALIA DURHAM DO Common Visit Codes: [id number] INP/OBS CARE(HIGH) NATALIA DURHAM DO Sep 20, 2025 08:10
--- NOTE | 2025-10-03 16:35 | DVHPN2 ---
Reviewed: Care Plan, H&P Changes from previous H/P or p: No Changes General: Per HPI Objective Medications Current Medications Medications Dose Ordered Sig/Estella Route Start Time Stop Time Status Last Admin Dose Admin Metformin HCl 850 mg BID PO 09/12/25 22:00 UNV Laboratory Results Laboratory Tests 09/14/25 05:38 Urinalysis Test 09/08/25 09:04 Urine Color Light-yellow (Yellow) Urine Clarity Clear (Clear) Urine pH 5.0 (5.0-9.0) Urine Specific [place] 1.031 (1.001-1.035) Urine Protein Negative (Negative) Urine Ketones Negative (Negative) Urine Blood Negative /uL (Negative) Urine Nitrite Negative (Negative) Urine Bilirubin Negative (Negative) Urine Urobilinogen Normal mg/dL (Negative) Urine Leukocyte Esterase Negative /uL (Negative) Urine RBC 21 /hpf (0 - 4) Urine Microscopic WBC 28 /HPF (0-5) H Urine Squamous Epithelial Cells Few /hpf (<5) Urine Bacteria Few /hpf (None Seen) H Urine Mucus Few (None Seen) Urine Yeast (Budding) Moderate /hpf (None Seen) Urine Glucose 4+ mg/dL (Normal) H Microbiology Microbiology Date/Time Source Procedure Growth Status 09/12/25 20:00 Nose MRSA Screen - Final Complete Assessment/Plan Assessment/Plan * Diabetes mellitus for which she will be placed on sliding-scale insulin and a hemoglobin A1c will be checked. * Hypertension. * Sjogren's syndrome for which she will continue on Plaquenil. * Morbid obesity. * History of DVTs. * left leg numbness: notify dr Dukes * Status post lumbar spine surgery for spondylolisthesis. The patient will be placed on pain medication and receive physical therapy. * Advance care planning: The patient is a full code- Time spent was 18 minutes. continue with PT/OT and evaluated daily by surgery until cleared for discharge Plan discussed with: Patient Date of Service: Sep 15, 2025 Billing Provider: NATALIA DURHAM DO Common Visit Codes: [id number] INP/OBS CARE(HIGH) NATALIA DURHAM DO Oct 03, 2025 16:34
--- NOTE | 2025-10-03 16:38 | DVHPN2 ---
Reviewed: Care Plan, H&P Changes from previous H/P or p: No Changes General: Per HPI Objective Medications Current Medications Medications Dose Ordered Sig/Estella Route Start Time Stop Time Status Last Admin Dose Admin Metformin HCl 850 mg BID PO 09/12/25 22:00 UNV Laboratory Results Laboratory Tests 09/14/25 05:38 Urinalysis Test 09/08/25 09:04 Urine Color Light-yellow (Yellow) Urine Clarity Clear (Clear) Urine pH 5.0 (5.0-9.0) Urine Specific [place] 1.031 (1.001-1.035) Urine Protein Negative (Negative) Urine Ketones Negative (Negative) Urine Blood Negative /uL (Negative) Urine Nitrite Negative (Negative) Urine Bilirubin Negative (Negative) Urine Urobilinogen Normal mg/dL (Negative) Urine Leukocyte Esterase Negative /uL (Negative) Urine RBC 21 /hpf (0 - 4) Urine Microscopic WBC 28 /HPF (0-5) H Urine Squamous Epithelial Cells Few /hpf (<5) Urine Bacteria Few /hpf (None Seen) H Urine Mucus Few (None Seen) Urine Yeast (Budding) Moderate /hpf (None Seen) Urine Glucose 4+ mg/dL (Normal) H Microbiology Microbiology Date/Time Source Procedure Growth Status 09/12/25 20:00 Nose MRSA Screen - Final Complete Assessment/Plan Assessment/Plan * Diabetes mellitus for which she will be placed on sliding-scale insulin and a hemoglobin A1c will be checked. * Hypertension. * Sjogren's syndrome for which she will continue on Plaquenil. * Morbid obesity. * History of DVTs. * left leg numbness: notify dr Dukes * Status post lumbar spine surgery for spondylolisthesis. The patient will be placed on pain medication and receive physical therapy. * Advance care planning: The patient is a full code- Time spent was 18 minutes. continue with PT/OT and evaluated daily by surgery until cleared for discharge Plan discussed with: Patient Date of Service: Sep 16, 2025 Billing Provider: NATALIA DURHAM DO Common Visit Codes: [id number] INP/OBS CARE(HIGH) NATALIA DURHAM DO Oct 03, 2025 16:38
--- NOTE | 2025-10-03 16:39 | DVHPN2 ---
Reviewed: Care Plan, H&P Changes from previous H/P or p: No Changes General: Per HPI Objective Medications Current Medications Medications Dose Ordered Sig/Estella Route Start Time Stop Time Status Last Admin Dose Admin Metformin HCl 850 mg BID PO 09/12/25 22:00 UNV Laboratory Results Laboratory Tests 09/14/25 05:38 Urinalysis Test 09/08/25 09:04 Urine Color Light-yellow (Yellow) Urine Clarity Clear (Clear) Urine pH 5.0 (5.0-9.0) Urine Specific [place] 1.031 (1.001-1.035) Urine Protein Negative (Negative) Urine Ketones Negative (Negative) Urine Blood Negative /uL (Negative) Urine Nitrite Negative (Negative) Urine Bilirubin Negative (Negative) Urine Urobilinogen Normal mg/dL (Negative) Urine Leukocyte Esterase Negative /uL (Negative) Urine RBC 21 /hpf (0 - 4) Urine Microscopic WBC 28 /HPF (0-5) H Urine Squamous Epithelial Cells Few /hpf (<5) Urine Bacteria Few /hpf (None Seen) H Urine Mucus Few (None Seen) Urine Yeast (Budding) Moderate /hpf (None Seen) Urine Glucose 4+ mg/dL (Normal) H Microbiology Microbiology Date/Time Source Procedure Growth Status 09/12/25 20:00 Nose MRSA Screen - Final Complete Assessment/Plan Assessment/Plan * Diabetes mellitus for which she will be placed on sliding-scale insulin and a hemoglobin A1c will be checked. * Hypertension. * Sjogren's syndrome for which she will continue on Plaquenil. * Morbid obesity. * History of DVTs. * left leg numbness: notify dr Dukse * Status post lumbar spine surgery for spondylolisthesis. The patient will be placed on pain medication and receive physical therapy. * Advance care planning: The patient is a full code- Time spent was 18 minutes. continue with PT/OT and evaluated daily by surgery until cleared for discharge Plan discussed with: Patient Date of Service: Sep 18, 2025 Billing Provider: NATALIA DURHAM DO Common Visit Codes: [id number] INP/OBS CARE(HIGH) NATALIA DURHAM DO Oct 03, 2025 16:39
--- NOTE | 2025-10-03 16:39 | DVHPN2 ---
Reviewed: Care Plan, H&P Changes from previous H/P or p: No Changes General: Per HPI Objective Medications Current Medications Medications Dose Ordered Sig/Estella Route Start Time Stop Time Status Last Admin Dose Admin Metformin HCl 850 mg BID PO 09/12/25 22:00 UNV Laboratory Results Laboratory Tests 09/14/25 05:38 Urinalysis Test 09/08/25 09:04 Urine Color Light-yellow (Yellow) Urine Clarity Clear (Clear) Urine pH 5.0 (5.0-9.0) Urine Specific [place] 1.031 (1.001-1.035) Urine Protein Negative (Negative) Urine Ketones Negative (Negative) Urine Blood Negative /uL (Negative) Urine Nitrite Negative (Negative) Urine Bilirubin Negative (Negative) Urine Urobilinogen Normal mg/dL (Negative) Urine Leukocyte Esterase Negative /uL (Negative) Urine RBC 21 /hpf (0 - 4) Urine Microscopic WBC 28 /HPF (0-5) H Urine Squamous Epithelial Cells Few /hpf (<5) Urine Bacteria Few /hpf (None Seen) H Urine Mucus Few (None Seen) Urine Yeast (Budding) Moderate /hpf (None Seen) Urine Glucose 4+ mg/dL (Normal) H Microbiology Microbiology Date/Time Source Procedure Growth Status 09/12/25 20:00 Nose MRSA Screen - Final Complete Assessment/Plan Assessment/Plan * Diabetes mellitus for which she will be placed on sliding-scale insulin and a hemoglobin A1c will be checked. * Hypertension. * Sjogren's syndrome for which she will continue on Plaquenil. * Morbid obesity. * History of DVTs. * left leg numbness: notify dr Dukes * Status post lumbar spine surgery for spondylolisthesis. The patient will be placed on pain medication and receive physical therapy. * Advance care planning: The patient is a full code- Time spent was 18 minutes. continue with PT/OT and evaluated daily by surgery until cleared for discharge Plan discussed with: Patient Date of Service: Sep 17, 2025 Billing Provider: NATALIA DURHAM DO Common Visit Codes: [id number] INP/OBS CARE(HIGH) NATALIA DURHAM DO Oct 03, 2025 16:39
== END 2025-09-19 18:30 | disposition home or self-care (01) | DRG 451 ==
LOC: SUR 06:17 → OVERFLOW 07:56 → EAST 12:17
PROVIDERS: ADMIT Internal Medicine; ATTEND Internal Medicine
PROC: 0SB40ZZ Excision of Lumbosacral Disc, Open Approach (ICD-10-PCS; 2025-09-12)
PROC: 01NR0ZZ Release Sacral Nerve, Open Approach (ICD-10-PCS; 2025-09-12)
PROC: 00NY0ZZ Release Lumbar Spinal Cord, Open Approach (ICD-10-PCS; 2025-09-12)
PROC: 01NB0ZZ Release Lumbar Nerve, Open Approach (ICD-10-PCS; 2025-09-12)
PROC: 0SG3071 Fusion of Lumbosacral Joint with Autologous Tissue Substitute, Posterior Approach, Posterior Column, Open Approach (ICD-10-PCS; principal; 2025-09-12 07:34)
DX: M48.062 Spinal stenosis, lumbar region with neurogenic claudication (principal); E11.9 Type 2 diabetes mellitus without complications; E66.01 Morbid (severe) obesity due to excess calories; I10 Essential (primary) hypertension; M35.00 Sjogren syndrome, unspecified; M51.360 Other intervertebral disc degeneration, lumbar region with discogenic back pain only; M62.830 Muscle spasm of back; Z86.718 Personal history of other venous thrombosis and embolism; Z80.3 Family history of malignant neoplasm of breast; Z82.49 Family history of ischemic heart disease and other diseases of the circulatory system; Z80.1 Family history of malignant neoplasm of trachea, bronchus and lung; Z83.3 Family history of diabetes mellitus; Z79.899 Other long term (current) drug therapy; Z88.2 Allergy status to sulfonamides; Z68.39 Body mass index [BMI] 39.0-39.9, adult
CPT/HCPCS: 36415; 72100; 76000; 80053; 81001; 82962; 83036; 85025; 85610; 85730; 86705; 86803; 86850; 86900; 86901; 87081; 87340; 97110; 97116; 97163; 97530; A4344; G0378; J0131; J1815; J1885; J1956; J2250; J2405; J2704; J7042